=== PATIENT | male | born 1950 | race Caucasian/White ===

== ENCOUNTER 2018-11-14 12:29 | Inpatient (IN) ==
--- NOTE | 2018-11-14 13:25 | Diag Imaging Result Doc PS360 ---
EXAM: CT HEAD W/O CONTRAST 11/14/2018 HISTORY: diplopia TECHNIQUE: This exam was performed using automated exposure control, adjustment of mA or kV according to patient size, and/or use of iterative reconstruction technique. COMMENT: There are small lacunae bilaterally in the basal ganglia. There is some cortical and cortical lucency present posterior to the right sylvian fissure in the parietal lobe which was not present on 02/07/2018. There is no evidence of bleed or abnormal extra-axial fluid collection. There is some mucosal thickening in the ethmoid air cells bilaterally as well as in the left maxillary sinus. This is similar in appearance to the previous study. The calvarium is intact. IMPRESSION: The possibility of a subacute infarction in the right temporoparietal cortex cannot be excluded. Electronically signed by Srini Agrawal 11/14/2018 1:23 PM
--- NOTE | 2018-11-14 13:26 | Diag Imaging Result Doc PS360 ---
EXAM: CHEST-2 VIEWS 11/14/2018 HISTORY: cough TECHNIQUE: PA and lateral chest COMMENT: There are healing rib fractures on the right. There is no evidence of acute cardiac or pulmonary disease and compared to 02/11/2018 there has been no significant change. IMPRESSION: No acute disease. Electronically signed by Srini Agrawal 11/14/2018 1:23 PM
--- NOTE | 2018-11-14 13:48 | EKG Report ---
Test Performed on : 11/14/2018 1:28:10 PM Test Reason : diplopia Blood Pressure : / mmHG Vent. Rate : 092 BPM Atrial Rate : 092 BPM P-R Int : 138 ms QRS Dur : 082 ms QT Int : 354 ms P-R-T Axes : 053 011 052 degrees QTc Int : 437 ms Normal sinus rhythm. Possible Left atrial enlargement Borderline ECG When compared with ECG of 07-FEB-2018 06:42, No significant change was found Unconfirmed Result
[2018-11-14 13:50] LABS: URINE SOURCE CLEAN CATCH
[2018-11-14 13:52] LABS: BILIRUBIN URINE NEGATIVE (NEGATIVE); BLOOD URINE NEGATIVE (NEGATIVE); COLOR YELLOW; GLUCOSE URINE NEGATIVE (NEGATIVE); KETONE URINE NEGATIVE (NEGATIVE); LEUKOCYTES URINE NEGATIVE (NEGATIVE); NITRITE URINE NEGATIVE (NEGATIVE); PH URINE 6.5; PROTEIN URINE NEGATIVE (NEGATIVE); TURBIDITY URINE CLEAR (CLEAR); UR EPITHELIAL CELLS <10 /HPF (<10); URINE BACTERIA NEGATIVE /HPF; URINE RBC <10 /HPF (<10); URINE WBC <10 /HPF (<10); UROBILINOGEN URINE NORMAL (NORMAL)
[2018-11-14 13:59] LABS: INR 1.01; PROTIME 13.4 Seconds (11.0-16.0); PTT 32.9 Seconds (22.3-41.8)
[2018-11-14 14:02] LABS: BASO# 0.06 X1000 (0.0-0.2); BASO% 0.4 % (0.0-0.8); EOS# 0.47 X1000 (0.0-0.7); EOS% 3.1 % (0.0-10.0); HEMATOCRIT 33.5 % (42.0-52.0); HEMOGLOBIN 10.9 g/dL (14.0-18.0); IMM GRAN# 0.47 X1000 (0.0-0.04); IMM GRAN% 3.1 % (0.0-0.5); LYMPH# 1.43 X1000 (1.2-3.4); LYMPH% 9.6 % (20.5-51.1); MCH 29.4 PG (27-31); MCHC 32.5 g/dL (33-37); MCV 90.3 FL (81-99); MONO# 0.89 X1000 (0.11-0.59); MONO% 5.9 % (1.7-9.3); NEUT# 11.64 X1000 (1.4-6.5); NEUT% 77.9 % (42.2-75.2); PLT 492 X1000 (130-400); RBC 3.71 XMIL (4.7-6.1); RDW 23.5 % (11.5-14.5); WBC 14.96 X1000 (4.8-10.8)
[2018-11-14 14:08] LABS: ESTIMATED GFR > 60
[2018-11-14 14:09] LABS: AGAP 14; ALB/GLOB RATIO 1.9; ALBUMIN 4.9 g/dL (3.5-5.0); ALKALINE PHOSPHATASE 100 U/L (32-122); BUN 12 mg/dL (8-22); CALCIUM 8.3 mg/dL (8.8-10.2); CHLORIDE 89 mmol/L (98-107); COSMO 248; CREATININE 0.7 mg/dL (0.7-1.2); GLUCOSE 99 mg/dL (70-104); GOT 16 U/L (10-34); GPT 17 U/L (10-44); MAGNESIUM 1.8 mg/dL (1.5-2.7); POTASSIUM 4.5 mmol/L (3.5-5.1); SODIUM 123 mmol/L (136-145); TCO2 20 mmol/L (25-35); TOTAL BILIRUBIN 0.49 mg/dL (0.20-1.00); TOTAL PROTEIN 7.5 g/dL (6.3-8.3)
[2018-11-14 15:06] LABS: BANDS 2 % (0-1); BASO 2 % (0-1); EOS 4 % (1-10); LYMPHS 9 % (21-51); MONO 5 % (1-9); SEGS 75 % (42-75)
[2018-11-14 15:07] LABS: ANISOCYTOSIS 2+; HYPOCHROM 2+
--- NOTE | 2018-11-14 15:17 | PROVIDER DOCUMENTATION ---
HPI-Neurological Disorder - General Chief Complaint: Stroke-Like Symptoms Stated Complaint: DR CORNEJO REFERRED Time Seen by Provider: 11/14/18 13:02 Source: patient, family Allergies/Adverse Reactions: Patient Allergies Allergy/AdvReac Type Severity Reaction Status Date / Time Penicillins Allergy ANAPHYLAXIS Verified 11/14/18 15:50 Home Medications: Home Medication List Medication Instructions Recorded Confirmed Last Taken Type Levothyroxine [Synthroid] 75 mcg PO QAM 10/04/17 11/14/18 11/14/18 History Losartan [Cozaar] 50 mg PO QAM 10/04/17 11/14/18 11/14/18 History Tamsulosin [Flomax] 0.4 mg PO DAILY 10/04/17 11/14/18 11/13/18 History Testosterone Cypionate 1 dose IM Q14D 10/04/17 11/14/18 11/04/18 History Folic Acid 1 mg PO DAILY #30 tab 02/13/18 11/14/18 11/14/18 Rx Pantoprazole [Protonix] 40 mg PO DAILY@0700 #30 tab 02/13/18 11/14/18 11/14/18 Rx Paroxetine [Paxil] 20 mg PO QHS #30 tab 02/13/18 11/14/18 11/13/18 Rx Amlodipine [Norvasc] 1 tab PO DAILY 11/14/18 11/14/18 11/14/18 History Carvedilol [Coreg] 1 tab PO DAILY 11/14/18 11/14/18 11/13/18 History Hydralazine [Apresoline] 1 tab PO DAILY 11/14/18 11/14/18 11/14/18 History - History of Present Illness-Neuro Nature of Presenting Problem: 68 yr old M, hx of HTN, recent cerebral hemorrhage secondary to trauma, presents with sudden onset diplopia and blurry vision which began this morning. He was initially presenting to the PCP with concerns of pneumonia development due to a 3 day hx of cough and SOB. The pt denies focal weakness, slurring of speech, headache, chest pain, but because of his recent hospitalization, his PCP advised him to come to the ED. They symptoms quickly resolved, and at the time of the initial encounter, the patient was asymptomatic. Onset/Duration: reports: 1/2 hour ago Timing: reports: gone now Context: reports: none Character of Altered Mental Status: reports: N/A Any recent trauma/injury?: reports: major, to head Character of Deficits: reports: vision problem/glaucoma New weakness or altered sensation location:: reports: none Cognitive Baseline: alert, oriented x3 Gait Baseline: walks without assistance Associated Symptoms: reports: denies symptoms Similar Symptoms Previously?: No Review of Systems - Adult - REVIEW OF SYSTEMS - ADULT Constitutional: reports: no symptoms reported Eyes: reports: blurred vision, double vision Ears, Nose, Mouth & Throat: reports: no symptoms reported Cardiovascular: reports: no symptoms reported Respiratory: reports: no symptoms reported Gastrointestinal: reports: no symptoms reported Genitourinary: reports: no symptoms reported Musculoskeletal: reports: no symptoms reported Neurological: denies: ataxia, dizziness/vertigo, headache/migraines, slurred speech, syncope Past History - Adult - PAST MEDICAL HISTORY-ADULT Review of Records: reports: Old Records Reviewed, Nursing Assessment Review Major Childhood Illnesses: reports: denies history Cardiovascular: reports: denies history Respiratory: reports: denies history Gastrointestinal: reports: denies history Obstetrical/Gynecological: reports: denies history Genitourinary: reports: denies history Musculoskeletal: reports: denies history Neurological: reports: denies history Endocrine/Immune: reports: denies history Other Conditions: reports: denies history - PRIOR SURGERIES/PROCEDURES Surgical/Procedure History: reports: other (oral surgery) - IMMUNIZATION STATUS Childhood Immunizations: See Nurse Assessment Flu Vaccine: See Nurse Assessment Physical Exam- Neurological - Physical Exam-Neuro Initial Vital Signs Reviewed: Yes General Appearance: appears well, alert, no apparent distress Eye Exam: bilateral eye: normal inspection, PERRL, EOMI HENMT: normocephalic/atraumatic, moist mucous membranes Head Injury: other (healing scar on right forehead) Respiratory: lungs clear, normal breath sounds Cardiovascular: regular rate, rhythm Abdominal Exam: non tender 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, 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: normal hearing, normal speech Motor/Sensory: no motor deficit, no sensory deficit, no pronator drift Neurologic: grossly normal Psych/Mental Status: normal mood/affect, oriented x 3 - Glascow Coma Scale Best Eye Response: (4) open spontaneously Best Verbal Response: (5) oriented Best Motor Response: (6) obeys commands Progress - PLAN OF CARE/RESULTS Progress/Plan/Lab Results: Vital Signs - 8 hr 11/14/18 12:58 11/14/18 15:37 11/14/18 15:45 Temperature 97.8 F Pulse Rate 90 87 85 Respiratory Rate 20 21 21 Blood Pressure 173/98 O2 Sat by Pulse Oximetry 98 99 98 11/14/18 16:00 11/14/18 16:01 11/14/18 16:15 Temperature Pulse Rate 84 84 83 Respiratory Rate 16 20 16 Blood Pressure 155/90 O2 Sat by Pulse Oximetry 98 99 99 11/14/18 16:30 11/14/18 16:32 11/14/18 16:45 Temperature Pulse Rate 92 H 86 82 Respiratory Rate 15 22 20 Blood Pressure 181/79 O2 Sat by Pulse Oximetry 98 99 98 11/14/18 17:00 11/14/18 17:01 Temperature Pulse Rate 83 82 Respiratory Rate 22 20 Blood Pressure 187/107 O2 Sat by Pulse Oximetry 97 99 Laboratory Results - last 24 hr 11/14/18 11/14/18 11/14/18 13:35 13:35 13:35 WBC 14.96 H RBC 3.71 L Hgb 10.9 L Hct 33.5 L MCV 90.3 MCH 29.4 MCHC 32.5 L RDW Std Deviation 23.5 H Plt Count 492 H MPV 9.0 Immature Gran % (Auto) 3.1 H Neut % (Auto) 77.9 H Lymph % (Auto) 9.6 L [place] % (Auto) 5.9 Eos % (Auto) 3.1 Baso % (Auto) 0.4 Immature Gran # (Auto) 0.47 H Neut # (Auto) 11.64 H Lymph # (Auto) 1.43 [place] # (Auto) 0.89 H Eos # (Auto) 0.47 Baso # (Auto) 0.06 Segmented Neutrophils 75 Band Neutrophils 2 H Lymphocytes 9 L Monocytes 5 Eosinophils 4 Basophils 2 H Metamyelocytes 2.0 Myelocytes 1.0 Hypochromia 2+ Anisocytosis 2+ PT 13.4 INR 1.01 PTT (Actin FS) 32.9 Sodium 123 L Potassium 4.5 Chloride 89 L Carbon Dioxide 20 L Anion Gap 14 BUN 12 Creatinine 0.7 Estimated GFR/1.73 m2 > 60 BUN/Creatinine Ratio 17 Glucose 99 Calculated Osmolality 248 Calcium 8.3 L Magnesium 1.8 Total Bilirubin 0.49 AST 16 ALT 17 Alkaline Phosphatase 100 Troponin T Total Protein 7.5 Albumin 4.9 Globulin 2.6 Albumin/Globulin Ratio 1.9 Urine Source Urine Color Urine Turbidity Urine pH Ur Specific [place] Urine Protein Ur Glucose (Stick) Ur Ketones (Stick) Urine Blood Urine Nitrite Urine Bilirubin Urobilinogen Dipstick Urine Leukocytes Urine WBC (Auto) Urine RBC (Auto) U Epithel Cells (Auto) Urine Bacteria (Auto) 11/14/18 11/14/18 13:35 13:41 WBC RBC Hgb Hct MCV MCH MCHC RDW Std Deviation Plt Count MPV Immature Gran % (Auto) Neut % (Auto) Lymph % (Auto) [place] % (Auto) Eos % (Auto) Baso % (Auto) Immature Gran # (Auto) Neut # (Auto) Lymph # (Auto) [place] # (Auto) Eos # (Auto) Baso # (Auto) Segmented Neutrophils Band Neutrophils Lymphocytes Monocytes Eosinophils Basophils Metamyelocytes Myelocytes Hypochromia Anisocytosis PT INR PTT (Actin FS) Sodium Potassium Chloride Carbon Dioxide Anion Gap BUN Creatinine Estimated GFR/1.73 m2 BUN/Creatinine Ratio Glucose Calculated Osmolality Calcium Magnesium Total Bilirubin AST ALT Alkaline Phosphatase Troponin T < 0.010 Total Protein Albumin Globulin Albumin/Globulin Ratio Urine Source CLEAN CATCH Urine Color YELLOW Urine Turbidity CLEAR Urine pH 6.5 Ur Specific [place] 1.016 Urine Protein NEGATIVE Ur Glucose (Stick) NEGATIVE Ur Ketones (Stick) NEGATIVE Urine Blood NEGATIVE Urine Nitrite NEGATIVE Urine Bilirubin NEGATIVE Urobilinogen Dipstick NORMAL Urine Leukocytes NEGATIVE Urine WBC (Auto) <10 Urine RBC (Auto) <10 U Epithel Cells (Auto) <10 Urine Bacteria (Auto) NEGATIVE Orders Category Date Time Status Cardiac Monitoring DIRECTED Care 11/14/18 13:04 Active Saline Loc NOW Care 11/14/18 13:04 Active CHEST-2 VIEWS [RAD] Stat Exams 11/14/18 13:[address] HEAD W/O CONTRAST [CT] Stat Exams 11/14/18 13:03 Completed MRI BRAIN W/CONTRAST [MRI] Stat Exams 11/14/18 16:10 Completed BLOOD CULTURE [BLDCUL] Stat Lab 11/14/18 17:32 Received CBC WITH DIFF [HEME] Stat Lab 11/14/18 13:35 Completed COMPREHENSIVE METABOLIC PANEL [CHEM] Stat Lab 11/14/18 13:35 Completed MAGNESIUM [CHEM] Stat Lab 11/14/18 13:35 Completed PROTIME WITH INR [COAG] Stat Lab 11/14/18 13:35 Completed PTT [COAG] Stat Lab 11/14/18 13:35 Completed TROPONIN T Stat Lab 11/14/18 13:35 Completed UA NIMS W/REFLEX CULT [URINALYSIS] Stat Lab 11/14/18 13:41 Completed 0.9% Sodium Chloride Inj [Ns] 1,000 ml Med 11/14/18 16:34 Discontinued IV 999 mls/hr Albuterol 2.5MG/Ipratrop 0.5MG [Duoneb (A & A)] Med 11/14/18 16:47 Discontinued 3 ml INH NOW ONE Aerosol Treatments Routine Oth 11/14/18 16:47 Active Aerosol Treatments Stat Oth 11/14/18 16:47 Active EKG [EKG] Stat Ther 11/14/18 13:04 Draft Result Diagrams: 11/14/18 13:35 11/14/18 13:35 - EKG 1 Time of EKG reading by physician:: 13:40 EKG Read and Signed by:: Reji Mohamud EKG Interpretation (*Must complete 3 of following elements*): Normal Rate: 92 Rhythm: sinus, w/ possible left atrial enlargment Mason: normal QRS: normal NM Interval: normal ST Wave: normal - XRAY 1 XRAY Study: Chest (no acute) Impression: See EMR Report (no acute findings) - CT/MRI 1 CT Study: Head Impression: See EMR Report (subacute right temporoparietal infarct cannot be excluded, per radiology report.) - CONSULTS/PCP/HOSPITALIST Notification #1 *Consult/PCP/Hospitalist*: Dr. Henriquez (sp?) Transfer Center Time Discussed: 16:10 Reason/Comments: hold transfer at this time, admit here unless MRI shows acute abnormalities #2 Consult: Dr. Latham Time Discussed: 19:35 Consult Disposition: Admit Departure - Departure Date of Disposition Decision: 11/14/18 Time of Disposition Decision: 19:43 DIAGNOSIS: Hyponatremia, Leukocytosis Disposition: ADMITTED INPATIENT 09 Certified Medical Emergency: Emergent Condition: Fair Referrals and Follow-Ups: Osvaldo Cornejo [Primary Care Provider] - - Critical Care Note This patient required my direct & personal management of CC.: No Attestation - Physician/ RADHA Attestation Patient care was provided by Advanced Practice Provider:: No The physician spent face to face time with patient:: Yes Advanced Practice Provider documentation review:: Supervising physician onsite and consulted in the evaluation and care of this patient. The physician did have a face to face encounter with the patient. - NIH Stroke Scale NIH Type: Initial Evaluation Level of Consciousness: 0-Alert LOC Questions (ask month and age): 0-Answers Both Correctly LOC Commands (ask to open & close eyes;make a fist, let go): 0-Obeys Both Correctly Best Gaze (horizontal eye movement): 0-Normal Visual (use finger movement, counting or visual threat): 0-No Visual Loss Facial Palsy (show teeth or raise eyebrows & close eyes tght: 1-Minor Paralysis Motor Function-left arm: 0-Normal Motor Function-right arm: 0-Normal Motor Function-left le-Normal Motor Function-right le-Normal Limb Ataxia(jvtbmz-legi-oamzlb, or heel to lopez): 0-No Ataxia Sensory(pin prick to face,arms,trunk,legs-compare side/side): 0-No Ataxia Best Language(name item/read sentence.Ex-Down to Earth): 0-No Aphasia Dysarthria(Pt read words or say words Ex.Mama,Tip-Top,Thanks: 0-Normal Articulation Extinction and Inattention: 0-Normal NIH Total Score: 1
[2018-11-14] MEDS ORDERED: NS 1,000 ML IV ONE (16:34)
[2018-11-14] MEDS ORDERED: DUONEB (A & A) INH ONE (16:47)
--- NOTE | 2018-11-14 18:16 | Diag Imaging Result Doc PS360 ---
EXAM: MRI BRAIN W/CONTRAST - 11/14/2018 HISTORY: Concern for CVA TECHNIQUE: MRI brain without and with contrast. Images are obtained prior to and following gadolinium administration. COMPARISON: 02/07/2018 MRI brain without contrast, 11/14/2018 CT head without contrast FINDINGS: There is a 2.4 x 1 cm area of restricted diffusion at the posterior temporal parietal junction on the right. There is corresponding increased signal at this location on T1-weighted, FLAIR, and T2-weighted images. The increased signal on the T1-weighted images suggests luxury perfusion. There is a small amount of enhancement at the lateral margin of the infarct. These findings suggest late acute to subacute infarct. The diffusion weighted images show no other areas of restricted diffusion. There is no other evidence of intracranial hemorrhage, mass effect, midline shift or abnormal enhancement. IMPRESSION: 2.4 x 1 cm late acute to subacute infarct at posterior right temporal parietal junction. Electronically signed by Dawson Miramontes 11/14/2018 6:14 PM
[2018-11-14 21:38] LABS: SP GRAVITY URINE 1.017
--- NOTE | 2018-11-14 21:43 | HISTORY AND PHYSICAL ---
REASON FOR ADMISSION: Two day history of congestion and 1-day history of diplopia. DIPLOPIA TODAY THE: Mr. Corby White is a 60-year-old male with a past medical history of posttraumatic intracranial bleed less than a month ago. He also has a history of COPD, hypertension and BPH. Today, he came in because he had been having some increasing shortness of breath, nonproductive cough, chest congestion with wheezing for the last 2 days. He admits to having subjective fever and chills. He went to see Dr. Saibllon today but his daughter noticed that he was ataxic as far as his gait was concerned and the patient admitted to having blurred vision, but no new onset headache. No speech disturbance of facial asymmetry noted. On arriving there, these symptoms still persisted and he was referred to the ER for further workup. Patient denies any new focal weakness. No genitourinary complaints. No GI complaints. No polyuria polydipsia. No recent change in his medications. Since he left [facility] a month ago for an intracranial bleed, his aspirin has been withheld. No loss of consciousness. REVIEW OF SYSTEMS: Twelve system review was done. Positive findings per HPI. ALLERGIES TO: Penicillins and albuterol. HOME MEDICATIONS: Patient takes hydralazine 50 mg daily, Coreg 12.5 mg daily, losartan 50 mg daily, Flomax 0.4 mg daily, Norvasc 10 mg daily, Synthroid 25 mcg daily, testosterone shots every 2 weeks, Paxil 20 mg at bedtime, folic acid 1 mg daily, Protonix 40 mg daily. SURGICAL HISTORY: Tonsillectomy and appendectomy. SOCIAL HISTORY: He is . Lives in [place]. Drinks about 1 to 2 glasses of wine a day. Does not smoke. FAMILY HISTORY: Father has coronary artery disease. Mother had leukemia. Positive history of diabetes in first-degree relatives. LAB WORK: MRI of the brain showed 2.4 x 1 cm late acute to subacute infarct of the right posterior temporal parietal junction. CT of the head done showed possible subacute infarct of the right temporoparietal cortex. Chest film showed no acute disease. EKG showed sinus rhythm, possible left atrial enlargement. WBC 15,000, H H 10 and 30, platelets 492,000, 78% neutrophils. Sodium is 123. BUN is 17, creatinine 0.7. Calcium 8.3. Troponin is negative. PTT is normal. Urinalysis is clean. EXAMINATION: General: Middle-aged man who is not in acute distress. He is A and O x3. Normal mood and affect. The patient is anicteric, not pale. HEENT: Head is normocephalic, but the patient has an almost healed scar on the left temporal area of his head. Eyes, DOMINIC, EOMI. Neurological: Cranial nerves 2-12 are grossly intact. The rest of neurological exam no gross focal deficits. No tremors. DTRs are intact. Neck: Supple. No JVD or carotid bruit. No thyromegaly. Chest: Bibasilar crepitations and wheezes scattered all over both lung kyle. Decreased air entry in both lung kyle. Cardiovascular: First and sounds heard. No gallops, murmurs, rubs. Rhythm is regular. Abdomen: Full, soft, nontender. No mass or organomegaly. Bowel sounds are normal. Rectal: Deferred at this time. Extremities: Patient has good distal pulse volume in all extremities except the patient's left posterior tibialis and left dorsalis pedis pulses are difficult to palpate. Rhythm is regular with occasional skipped beats and pulses are symmetrical. No edema, clubbing or peripheral cyanosis. Neurological: See above. Skin: Intact. No breakdown, lesions, erythema. Musculoskeletal: Exam is grossly normal. ASSESSMENT: 1. Probable transient ischemic attack. The patient does not have any acute signs or symptoms at this point in time. No diplopia. Family states to have some residual ataxia. We will consult Dr. Long to see patient. I have ordered an echocardiogram and may consider carotid study if deemed necessary. Although I do still records from [place] will need to be retrieved as this patient may have had a possible MRAs of the head and neck due to his recent acute intracranial incident. Question of starting aspirin is highly controversial. I will defer to Dr. Long because of patient's recent cranial bleed. However I will start patient on statins. Cautiously use antihypertensives. 2. Hyponatremia. This could be as a consequence of possible intrathoracic and/or recent intracranial injury which can affect the ADH secretion. We will get a urine osmolality and uric acid and spot sodium to confirm or refute this. Also get a TSH. Cautious sodium chloride replacement and monitor BMP closely. 3. Microcytic anemia. This could be related to hypothyroidism or some yet to be diagnosed hematinic deficiency. Anemia workup was ordered. 4. Hypertension. 5. Chronic obstructive pulmonary disease with mild exacerbation. However, cannot rule out underlying pneumonia. We will order scheduled nebulizer treatments and empiric antibiotics and noncontrast CT thorax because of patient's complaints of fever, pneumonia, and worsening shortness of breath which may suggest an ongoing pneumonia. cc: Guille Latham MD
[2018-11-14] MEDS ORDERED: COREG PO SCH (22:03)
[2018-11-14] MEDS ORDERED: ZOFRAN IV PRN (22:03)
[2018-11-14] MEDS ORDERED: NS NEB INH SCH (22:03)
[2018-11-14] MEDS ORDERED: TYLENOL PO PRN (22:03)
[2018-11-14] MEDS ORDERED: NS 1,000 ML IV SCH (22:03)
[2018-11-14] MEDS ORDERED: ATIVAN IV PRN (22:37)
[2018-11-14] MEDS: ATROVENT NEB INH SCH (22:45)
[2018-11-14] MEDS: LIPITOR PO SCH (23:32)
[2018-11-14] MEDS: PAXIL PO SCH (23:32)
[2018-11-14] MEDS: THIAMINE 100 MG in NS 50 ML IV SCH (23:33)
[2018-11-14] MEDS: NORCO-5 PO PRN (23:33)
[2018-11-14] MEDS: XOPENEX NEB INH SCH (23:40)
[2018-11-15] MEDS: LEVAQUIN 500 MG/D5W 500 MG/100 ML IVPB IV SCH (00:15)
[2018-11-15] MEDS: APRESOLINE PO SCH ×3 (00:15→20:04)
[2018-11-15 01:36] LABS: AGAP 13; BUN 10 mg/dL (8-22); CHLORIDE 96 mmol/L (98-107); COSMO 260; CREATININE 0.7 mg/dL (0.7-1.2); ESTIMATED GFR > 60; GLUCOSE 109 mg/dL (70-104); POTASSIUM 4.2 mmol/L (3.5-5.1); SODIUM 130 mmol/L (136-145); TCO2 21 mmol/L (25-35)
[2018-11-15] MEDS: PROTONIX PO SCH ×2 (06:04→07:23)
[2018-11-15] MEDS: SYNTHROID PO SCH ×2 (06:05→07:23)
[2018-11-15 06:23] LABS: AGAP 14; BUN 11 mg/dL (8-22); CALCIUM 8.2 mg/dL (8.8-10.2); CHLORIDE 97 mmol/L (98-107); COSMO 260; CREATININE 0.7 mg/dL (0.7-1.2); ESTIMATED GFR > 60; GLUCOSE 90 mg/dL (70-104); MAGNESIUM 2.1 mg/dL (1.5-2.7); POTASSIUM 4.2 mmol/L (3.5-5.1); SODIUM 130 mmol/L (136-145); TCO2 19 mmol/L (25-35)
[2018-11-15 06:47] LABS: BASO% 0.8 % (0.0-0.8); HEMATOCRIT 32.1 % (42.0-52.0); HEMOGLOBIN 10.1 g/dL (14.0-18.0); LYMPH# 1.38 X1000 (1.2-3.4); LYMPH% 11.1 % (20.5-51.1); MCH 29.1 PG (27-31); MCHC 31.5 g/dL (33-37); MCV 92.5 FL (81-99); MONO# 0.89 X1000 (0.11-0.59); MONO% 7.2 % (1.7-9.3); MPV 9.1 FL (7.4-10.4); PLT 464 X1000 (130-400); RBC 3.47 XMIL (4.7-6.1); RDW 23.5 % (11.5-14.5); WBC 12.42 X1000 (4.8-10.8)
--- NOTE | 2018-11-15 07:25 | Diag Imaging Result Doc PS360 ---
EXAM: CT THORAX W/O CONTRAST 11/14/2018 HISTORY: Possible PNA TECHNIQUE: This exam was performed using automated exposure control, adjustment of mA or kV according to patient size, and/or use of iterative reconstruction technique. COMMENT: The blood pool in the aorta has a CT density of less than 35 Hounsfield units which is likely associated with anemia. There is no evidence of aneurysm. There is a small hiatal hernia. There is a fairly large amount of stool seen in the transverse colon. There is some perinephric stranding on the left. This is similar in appearance to the previous study of 02/08/2018. Multiple hepatic cysts are present. This was also the case previously. The gallbladder is slightly hyperdense. While the possibility of sludge cannot be entirely excluded, it is likely this is due to vicarious excretion of gadolinium from the MRI of the brain performed earlier today. There is an adenoma in the left adrenal gland measuring 19 mm in diameter which is also stable in appearance since the previous study. There are no pleural effusions. There is some calcification in the left anterior descending coronary artery. There is no evidence of significant adenopathy. There is no evidence of acute bony abnormality. The lungs are unchanged in appearance since the previous study and there is no evidence of acute pulmonary disease. There is a granuloma in the left apex. IMPRESSION: No evidence of acute pulmonary disease. Anemia. Otherwise stable since 02/08/2018. Electronically signed by Srini Agrawal 11/15/2018 7:23 AM
[2018-11-15 07:55] LABS: BANDS 3 % (0-1); BASO 1 % (0-1); EOS 7 % (1-10); LYMPHS 14 % (21-51); MONO 7 % (1-9); NRBC 1 % (0-0); SEGS 67 % (42-75)
[2018-11-15 08:18] LABS: UR AMPHETAMINES QUAL NONE DETECTED (NONE DETECT); UR BARBITUATES QUAL NONE DETECTED (NONE DETECT); UR BENZODIAZEPIN QUAL NONE DETECTED (NONE DETECT); UR CANNABINOIDS QUAL NONE DETECTED (NONE DETECT); UR COCAINE QUAL NONE DETECTED (NONE DETECT); UR METHADONE QUAL NONE DETECTED (NONE DETECT); UR OPIATES QUAL NONE DETECTED (NONE DETECT); UR OXYCODONE QUAL NONE DETECTED (NONE DETECT); UR PCP QUAL NONE DETECTED (NONE DETECT)
[2018-11-15] MEDS ORDERED: COZAAR PO SCH (09:00)
[2018-11-15] MEDS: NORVASC PO SCH (10:03)
[2018-11-15] MEDS: FOLIC ACID PO SCH (10:03)
[2018-11-15] MEDS: FLOMAX PO SCH (10:03)
[2018-11-15] MEDS: ATROVENT NEB INH SCH ×2 (11:24→16:10)
[2018-11-15] MEDS: XOPENEX NEB INH SCH ×2 (11:24→16:10)
[2018-11-15] MEDS ORDERED: NS 1,000 ML IV SCH (15:00)
--- NOTE | 2018-11-15 16:35 | ECHO REPORT ---
ORDER DATE: 11/14/2018 INTERPRETING PHYSICIAN: Jonas Noriega MD. CLINICAL INDICATIONS: TIA. M-MODE MEASUREMENTS: Left ventricle end diastole: 5.5 cm. Left ventricle end systole: 2.9 cm. Posterior wall: 0.7 cm. Interventricular septum: 0.9 cm. Left atrium: 4.0 cm. Aortic diameter: 3.6 cm. SUMMARY OF 2-DIMENSIONAL IMAGIN. The left ventricular function is normal. Ejection fraction is 64%. The left ventricular chamber is mildly enlarged. 2. The aortic valve looks grossly unremarkable. Color flow mapping shows no regurgitation. 3. The pulmonic valve also looks grossly unremarkable. 4. The mitral valve looks normal with no significant regurgitation. 5. Pulsed wave Doppler of mitral inflow shows mild reversal of the E and the A ratio. Ratio is almost basically normal at 0.88. 6. The pulsed wave Doppler of pulmonary venous flow is normal. 7. The tissue Doppler of septal and lateral mitral annulus averages 10 cm. 8. There is no diastolic dysfunction. 9. The left atrium is mildly enlarged. 10.There is no pericardial effusion. 11.The right-sided chambers are unremarkable. IN SUMMARY: This study shows 1. Normal left ventricular systolic function. 2. Normal diastolic function. 3. No evidence of any significant valvular abnormality. 4. No pericardial effusion. 5. Pulmonary pressure is grossly estimated at 37 mmHg. cc: MD Guille Dai MD
--- NOTE | 2018-11-15 19:25 | PROGRESS NOTE ---
DATE: 11/15/2018 SUBJECTIVE: The patient is awake and alert. He states that he feels a lot better. He has already been up walking with physical therapy in the hallway. His mental status has returned to baseline as per his daughter at the bedside. OBJECTIVE: Vital Signs: Temperature 98.4 degrees, blood pressure 143/71, heart rate 93, respirations 20, O2 saturation 99% on room air. General: This is an elderly male, sitting up in bed in no acute distress. Heart: S1, S2, normal. Lungs: Coarse breath sounds bilaterally. Abdomen: Positive bowel sounds. Soft, nontender, nondistended. Extremities: No edema. No cyanosis. Neurologic: The patient is alert and oriented x3. LABS: White blood cell count 12, hemoglobin 10, hematocrit 32, platelets 464,000. Sodium 129, potassium 4.2, chloride 97, CO2 19, BUN 11, creatinine 0.7, glucose 90, calcium 8.2, TSH 0.8. ASSESSMENT AND PLAN: 1. Suspected subacute cerebrovascular accident. The patient appears to be back to baseline. We will continue with physical therapy and occupational therapy. The carotid duplex study has been done. The report is currently pending. The patient's echocardiogram was noted to be unremarkable. Given the patient's recent intracranial hemorrhage at [facility], we will hold off on antiplatelet therapy. 2. Chronic obstructive pulmonary disease. Continue with bronchodilator therapy. 3. Hypertension, improved. Continue with the current antihypertensive regimen. 4. Leukocytosis, improved. 5. Hypothyroidism. Continue on Synthroid. 6. Hyponatremia. Will monitor the sodium closely. Continue with intravenous fluids. 7. Deep vein thrombosis prophylaxis. Continue with sequential compression devices. 8. Will transfer the patient to the medical floor. cc: Lindy Marcus MD
[2018-11-15] MEDS: LIPITOR PO SCH (20:03)
[2018-11-15] MEDS: COREG PO SCH (20:03)
[2018-11-15] MEDS: NORCO-5 PO PRN (20:04)
[2018-11-15] MEDS: PAXIL PO SCH (20:07)
[2018-11-15] MEDS: THIAMINE 100 MG in NS 50 ML IV SCH (22:54)
[2018-11-16] MEDS: LEVAQUIN 500 MG/D5W 500 MG/100 ML IVPB IV SCH ×2 (00:02→22:59)
[2018-11-16] MEDS: ATROVENT NEB INH SCH ×4 (04:59→23:19)
[2018-11-16] MEDS: XOPENEX NEB INH SCH ×4 (04:59→23:19)
--- NOTE | 2018-11-16 05:36 | CONSULTATION ---
DATE OF CONSULTATION: 11/15/2018 REASON FOR CONSULTATION: Stroke. HISTORY OF PRESENT ILLNESS: This is a 68-year-old male with history of hypertension and recent traumatic intracranial hemorrhage about one month ago. He came in yesterday with complaints of transient horizontal diplopia and unsteady gait. Symptoms came on suddenly, and seemed to last for several hours before completely resolving. He denies other associated symptoms. No headache. No loss of consciousness. No difficulty swallowing or maintaining secretions. No dysarthria. He had initially presented to his primary care physician for 3 days worth of shortness of breath, cough, congestion, and wheezing. He also denied any focal weakness or sensory loss. Head CT on arrival showed the possibility of subacute infarction in the right temporal parietal cortex that could not be excluded. MRI of the brain today showed late acute to subacute infarct of the posterior right temporal parietal junction. Again, the patient is currently asymptomatic. notes he has had some confusion for some time now. He has had some unsteady gait and dizziness off and on for some time as well. He has had falls. He used to drink a bottle of wine a day. His sodium was 123 on arrival. Of note, the patient had a fall about 1 month ago down a handful of brick stairs in his garage. He was found semiconscious in a pool of blood with extensive bruising to the face. He was med flighted to [facility] where he stayed for treatment there. The indicates that he had two small hemorrhages in his brain as well as edema. He was monitored but ultimately no neurosurgical intervention occurred. He was taking low-dose aspirin which was given to him by his primary care physician. That was discontinued a month ago when he had the intracranial hemorrhage. PAST MEDICAL HISTORY: 1. Recent presumed traumatic intracranial hemorrhage. I do not have much more specifics currently. This was 1 month ago. 2. Hypertension. 3. COPD. 4. BPH. 5. Hypothyroidism. 6. Depression. FAMILY HISTORY: Positive for diabetes, coronary disease, and leukemia. SOCIAL HISTORY: He is . He lives in [place]. I believe his daughter works here in the hospital. He endorses drinking a bottle of wine a day. No tobacco or illicit's. He is retired. ALLERGIES: Listed to penicillin and albuterol. HOME MEDICATIONS: Reviewed in the chart. He takes testosterone, Paxil, folic acid, hydralazine, Coreg, losartan, Flomax, Norvasc, and Synthroid. REVIEW OF SYSTEMS: Balance of 12 was conducted, and is otherwise negative except for that detailed in the HPI. DIAGNOSTICS/LABORATORY DATA: Labs reviewed in the chart, white count 12 and platelets 464,000. Sodium 123 on admission and currently 134, BUN and creatinine normal. Blood sugars normal. Calcium 8.3. Magnesium normal. TSH 8.09. Urinalysis negative. Toxicology negative. Head CT personally reviewed. The impression is a possibility of a subacute infarction of the right temporal parietal cortex could not be excluded. MRI of the brain with contrast personally reviewed. Impression is that there is a 2.4 x 1 cm late acute to subacute infarct at the posterior right temporal parietal junction. There is restricted diffusion in this area. There is also prominent [*]signal in the T2 images. There is a very small area of enhancement at the lateral edge of the restricted diffusion. PHYSICAL EXAMINATION: Vital Signs: Afebrile. Blood pressure 173/98 on admission. Currently 153/75, pulse 70s to 90s, respirations 16 at 100 percent on room air. General: He is a 60-year- old left-handed male with no significant dysarthria. Mr. White is supine in bed with head of bed elevated. He is awake and alert, and oriented. Follows simple and complex commands. Left right digit distinction preserved. No definite language dysfunction. He is cooperative, may be a bit anxious. He speaks quickly. Pupils are equal, round, and reactive to light. Gaze is conjugate. Extraocular movements are full. I did not observe nystagmus. Visual kyle are intact to direct confrontational testing. He could hear. Face symmetric with equal activation. Facial sensation reported intact. Tongue is midline. I could not visualize the palate. Shoulder shrug is full. No drift. Tone is equal of the limbs. The power is preserved in the arms and legs as tested. He reports intact sensation to light touch and temperature as well as pinprick in the arms and legs that is symmetric. Rapid alternating movements. [id number] and finger taps are intact. Reflexes: He has a difficult time relaxing. They are 2+ at the knees, and wrists bilaterally. No clonus. Plantar response is downgoing laterally. I did not test his gait. ASSESSMENT AND PLAN: 1. Transient reported horizontal diplopia, visual blurring, and unsteady gait lasting several hours. History of off and on difficulties with unsteady gait and falls. Multiple potential etiologies or contributing factors including alcohol intake, possible Wernicke's type symptoms, chronic hyponatremia, potential for TIA at least regarding this most recent event. 2. Area of restricted diffusion on MRI imaging with corresponding finding on head CT. Appears to be stroke on initial glance, however, it is questionable and I am not certain of that in light of his very recent head trauma as well as lack of explanation of his clinical presenting symptoms. I have asked the nurse to request records from [facility]. It would be helpful to know where his recent hemorrhages were and the details surrounding that injury. 3. Hypertension. 4. Hyponatremia, being corrected by the primary team. Could be related to his reports of confusion and unsteadiness etc. 5. Again, I would like to start by getting records from his recent hospitalization at [facility]. It may be worthwhile to obtain vascular imaging of the intracranial vessels, particularly the posterior circulation. I would hold off on initiating aspirin until we are more certain that he has actually had an ischemic event in light of his recent head trauma. Continue treating his hyponatremia per primary team. I believe the typical stroke workup is pending. Agree with thiamine supplementation, and he likely should continue this as outpatient. He was counseled on his alcohol intake. PT/OT. 6. Thank you for the consultation. cc: Ashlee Lieberman MD
[2018-11-16] MEDS: SYNTHROID PO SCH (06:15)
[2018-11-16] MEDS: PROTONIX PO SCH (06:15)
[2018-11-16 07:47] LABS: BASO# 0.09 X1000 (0.0-0.2); BASO% 0.8 % (0.0-0.8); EOS# 0.64 X1000 (0.0-0.7); EOS% 5.9 % (0.0-10.0); HEMATOCRIT 31.3 % (42.0-52.0); HEMOGLOBIN 9.9 g/dL (14.0-18.0); IMM GRAN# 0.21 X1000 (0.0-0.04); IMM GRAN% 1.9 % (0.0-0.5); LYMPH# 1.18 X1000 (1.2-3.4); LYMPH% 10.8 % (20.5-51.1); MCH 29.1 PG (27-31); MCHC 31.6 g/dL (33-37); MCV 92.1 FL (81-99); MONO# 0.75 X1000 (0.11-0.59); MONO% 6.9 % (1.7-9.3); MPV 9.4 FL (7.4-10.4); NEUT# 8.05 X1000 (1.4-6.5); NEUT% 73.7 % (42.2-75.2); PLT 437 X1000 (130-400); RDW 23.5 % (11.5-14.5); WBC 10.92 X1000 (4.8-10.8)
[2018-11-16 08:00] LABS: AGAP 11; ALB/GLOB RATIO 1.5; ALKALINE PHOSPHATASE 87 U/L (32-122); BUN 11 mg/dL (8-22); CALCIUM 8.4 mg/dL (8.8-10.2); CHLORIDE 99 mmol/L (98-107); COSMO 266; CREATININE 0.6 mg/dL (0.7-1.2); ESTIMATED GFR > 60; GLUCOSE 108 mg/dL (70-104); GOT 13 U/L (10-34); GPT 12 U/L (10-44); SODIUM 133 mmol/L (136-145); TCO2 23 mmol/L (25-35); TOTAL BILIRUBIN 0.37 mg/dL (0.20-1.00); TOTAL PROTEIN 6.7 g/dL (6.3-8.3)
[2018-11-16 08:03] LABS: IRON SATURATION 5 %; TIBC 438 ug/dL; TOTAL IRON 21 ug/dL (53-167); UNBOUND IRON 417 ug/dL (112-346)
[2018-11-16 08:15] LABS: FERRITIN 14 ng/mL (30-400)
[2018-11-16 08:33] LABS: BANDS 4 % (0-1); EOS 4 % (1-10); LYMPHS 10 % (21-51); MONO 4 % (1-9); SEGS 72 % (42-75)
[2018-11-16 08:34] LABS: ANISOCYTOSIS 2+; HYPOCHROM 2+; POIKILOCYTOSIS 1+
[2018-11-16] MEDS: FOLIC ACID PO SCH (09:25)
[2018-11-16] MEDS: NORCO-5 PO PRN ×3 (09:25→20:21)
[2018-11-16] MEDS: ICAR-C PO SCH ×2 (09:25→20:21)
[2018-11-16] MEDS: APRESOLINE PO SCH ×2 (09:25→20:21)
[2018-11-16] MEDS: FLOMAX PO SCH (09:26)
[2018-11-16] MEDS: NORVASC PO SCH (09:26)
[2018-11-16] MEDS: COREG PO SCH ×2 (09:26→20:21)
--- NOTE | 2018-11-16 12:52 | PROGRESS NOTE ---
DATE: 11/16/2018 Mr. White reports transient diplopia 2 days ago. He noticed consistently horizontal diplopia while watching television. That persisted for several hours and then resolved spontaneously. He covered each eye and noticed vision was single with either eye covered and there was better acuity with the left eye than the right. He did not notice gaze in one direction to improve vision. There was no associated new neurologic deficit, altered consciousness, swallowing difficulty. He has a very complicated past neurologic history. There is history of chronic ethanol abuse, episodes of staggering and falling, prior head injuries. He had serious head injury about a month ago and there is report of intracranial bleeding managed conservatively without surgery in [place]. Daughter at the bedside believes this was right-sided bleeding. She does not know whether this was subdural hematoma, intraparenchymal bleeding, subarachnoid bleeding, brain contusion. He had what sounds like decerebrate posturing initially and was reported unconscious for a period of days. As he recovered, there was never a focal neurologic feature and there was never diplopia, according to patient and daughter. Records regarding that management in [place] have been requested but I do not see those available here now. There is report that he has had "lazy eye" but no prior diplopia except very briefly after cataract surgery some years ago. Workup here includes a brain MRI showing no definite brainstem findings. There is area of reduced brain density in the right hemisphere posteriorly. There is some increased signal on diffusion weighted images. He presented with hyponatremia which has been slowly and partially corrected. On exam, Mr. White is awake, alert, attentive, oriented. He seems appropriate. He did well on [id number] testing. Speech is not dysarthric. Facial motility is symmetric. He has full visual kyle tested grossly. His extraocular movements are initially full but with repeated left and right gaze, sometimes the right eye lags when moving nasally. He did not report diplopia at those times. There was not clear fatiguing of eye movements on repeated testing. I did not test his gait. IMPRESSION: Reported diplopia lasting most of the day and resolving spontaneously. He is certain this was consistently horizontal. His history is consistent and believable. Explanation for his diplopia is not certain. He might have had transient brainstem ischemia, transient cranial nerve ischemia, transient unmasking of chronic amblyopia, Wernicke encephalopathy, primary neuromuscular problem. None of these seem particularly likely. He could have a posttraumatic cranial nerve injury but this would be more likely to cause vertical diplopia and he did not notice diplopia as he recovered from his recent head injury. Sodium has been corrected cautiously and there is no imaging evidence of pontine myelinolysis. I agree with continuing thiamine. I encouraged him to be aggressive with management of his risk factors for cerebrovascular ischemic problems. I encouraged him to moderate use or to stop using ethanol. I do not have any other suggestion right now. Nothing to add to Dr. Lieberman's recent thorough assessment. Thanks for asking Neurology to see Mr. White. cc: Geovani Long III, MD MTDD
[2018-11-16] MEDS: ANUSOL-HC SUPP PR SCH ×2 (15:50→22:23)
[2018-11-16] MEDS: LIPITOR PO SCH (20:21)
--- NOTE | 2018-11-16 21:51 | PROGRESS NOTE ---
DATE: 11/16/2018 SUBJECTIVE: The patient is alert and awake. He states that he feels great today. He ate all of his meals and he has been able to ambulate with physical therapy today. OBJECTIVE: Vital Signs: Temperature 98.7 degrees, blood pressure 132/76, heart rate 77, respirations 18, O2 saturations 100% on room air. General: This is an elderly male sitting up in bed in no acute distress. Head: Normocephalic, atraumatic. Heart: S1, S2 normal. Regular rate and rhythm. Lungs: Clear to auscultation bilaterally. Abdomen: Positive bowel sounds. Soft, nontender, nondistended. Extremities: No edema. No cyanosis. Neurologic: The patient is alert and oriented x4. No focal neurologic deficits noted. LABS: White blood cell count 10, hemoglobin 9.9, hematocrit 31, platelets 437,000. Sodium 132, potassium 4, chloride 99, CO2 23, BUN 11, creatinine 0.6, glucose 108, calcium 8.4, folate 15. ASSESSMENT AND PLAN: 1. Transient ischemic attack vs subacute CVA. Stable. Continue with physical therapy. 2. Hyponatremia. The patient's sodium improved while on normal saline. However, once the normal saline was discontinued, the sodium has started to drop. We will consult with Nephrology for further recommendations. 3. Hypertension. Controlled. Continue on the current antihypertensive regimen. 4. Chronic obstructive pulmonary disease. Stable. Continue on bronchodilator therapy. 5. Hypothyroidism. Continue on Synthroid. 6. Status post traumatic intracranial hemorrhage. Stable. 7. Iron deficiency anemia. Will start Icar C. GI follow up as outpatient. 8. Deep vein thrombosis prophylaxis. Continue with sequential compression devices. 9. Disposition. Will plan to discharge the patient home once his sodium level stabilizes. cc: Lindy Marcus MD [facility]
[2018-11-16] MEDS: THIAMINE 100 MG in NS 50 ML IV SCH (22:59)
[2018-11-17] MEDS: NORCO-5 PO PRN ×3 (00:50→11:03)
[2018-11-17] MEDS: SYNTHROID PO SCH (06:21)
[2018-11-17] MEDS: PROTONIX PO SCH (06:21)
[2018-11-17 07:24] VITALS: BP 152/87
[2018-11-17 07:39] LABS: AGAP 13; BUN 11 mg/dL (8-22); CALCIUM 8.8 mg/dL (8.8-10.2); CHLORIDE 100 mmol/L (98-107); COSMO 271; CREATININE 0.7 mg/dL (0.7-1.2); ESTIMATED GFR > 60; GLUCOSE 121 mg/dL (70-104); SODIUM 135 mmol/L (136-145); TCO2 22 mmol/L (25-35)
[2018-11-17] MEDS: XOPENEX NEB INH SCH (08:19)
[2018-11-17] MEDS: ATROVENT NEB INH SCH (08:19)
[2018-11-17] MEDS: COREG PO SCH (08:51)
[2018-11-17] MEDS: NORVASC PO SCH (08:51)
[2018-11-17] MEDS: ICAR-C PO SCH (08:51)
[2018-11-17] MEDS: APRESOLINE PO SCH (08:51)
[2018-11-17] MEDS: FLOMAX PO SCH (08:51)
[2018-11-17] MEDS: FOLIC ACID PO SCH (08:51)
[2018-11-17] MEDS: ANUSOL-HC SUPP PR SCH (08:51)
--- NOTE | 2018-11-17 11:19 | Carotid Study ---
DATE: 11/15/2018 REQUESTING PHYSICIAN: Dr. Lindy Marcus. SUPERVISING DEPUTY: Emily. INDICATIONS: 1. CVA. 2. Brain bleed. EQUIPMENT: [employer] Vivid E9 ultrasound system with a 9 L-D transducer. FINDINGS: Complete diagram of ultrasound image can be seen scanned in the patient's medical record. The peak systolic velocity on the right side in the internal system is in the distal internal carotid artery and is 73. The peak systolic velocity on the left internal system is in the proximal internal and is noted to be 73. The calculated internal carotid ratio on the right is 0.52, and the left is 0.62. Calculated stenosis on the right is 0% to 39%, left is 0% to 39%. There appears to be some atherosclerosis, but at this time does not produce a hemodynamically significant flow-limiting stenosis. Both vertebral arteries were antegrade flow. INTERPRETATION: By strict velocity criteria, no hemodynamically significant flow-limiting stenosis. cc: MD Lindy Murphy MD
--- NOTE | 2018-11-17 14:07 | NEPHROLOGY CONSULTATION ---
DATE: 11/16/2018 REASON FOR ADMISSION: Two-day history of blurred vision and dizziness. REASON FOR CONSULTATION: Hyponatremia CONSULTING PHYSICIAN: Dr. iLndy Marcus. HISTORY OF PRESENT ILLNESS: Mr. White is a 60-year-old male with a past medical history of post traumatic intracranial bleed less than a month ago with a history of COPD, hypertension and BPH. The patient states that he has been told that his sodium has been low approximately 1 year ago. He also indicated that he had recently been started on Paxil in January of 2018. He admits to having increased work of breathing with a nonproductive cough, congestion or wheezing for 2 days prior to his admission. States that he had some fever and chills. Followed up with Dr. Sabillon. His daughter went to that office visit with him and noticed that he was ataxic with his gait. Admitted to having blurred vision with new onset of headache. No speech disturbance was present. No facial asymmetry. He was brought to [facility] for workup. On his initial labs, he was found to have a sodium of 123. CT of the head was essentially negative for acute disease. No polyuria, polydipsia, though patient states that he is chronically thirsty and will drink over 2 gallons of liquid in a day; even gets up at night and will drink milk out of a jug. The patient denies any nausea, vomiting, no diarrhea. No chest pain. No increased swelling. PAST MEDICAL HISTORY: Positive for post traumatic intracranial bleed less than a month ago followed at [facility]. He has been on a daily aspirin regimen, COPD, hypertension, BPH, anxiety. The patient has hypothyroidism. SURGICAL HISTORY: Tonsillectomy and appendectomy. SOCIAL HISTORY: He is . He lives in [place]. He has recently retired within the last month prior to his intracranial bleed. Drinks 1 to 2 glasses of wine daily. Admits to drinking greater than 2 gallons a day. No history of smoking. FAMILY HISTORY: Father with coronary artery disease. Mother with leukemia. Positive history of diabetes with first degree relatives. ALLERGIES: Listed as penicillin and albuterol. HOME MEDICATIONS: Hydralazine, Coreg, losartan, Flomax, Norvasc, Synthroid, testosterone shots, Paxil and Protonix. REVIEW OF SYSTEMS: Review of systems x10 with pertinent positives listed above in the HPI. LABS AND X-RAYS: The patient's CT of the head showed possible subacute infarct on the right temporoparietal cortex. Chest film was no acute disease. EKG showed sinus rhythm, possible atrial enlargement. His white count was 15,000, hemoglobin of 10. Urinalysis was negative. Sodium was 123 on admission, now up to 132. PHYSICAL EXAMINATION: Vital Signs: This a.m., temperature is 97.9 degrees, blood pressure 160/81, heart rate 77, respirations 18. He is on room air. Last recorded saturation 100%. He has had 390 in; he has had 0 recorded out. General: This is a 68-year-old white male resting quietly in bed. He is in no acute distress. Skin: Warm and dry. HEENT: Normocephalic, atraumatic. Conjunctiva is pale pink. He has DOMINIC. Mucous membranes are dry. Neck: Supple. Trachea midline. No evidence of JVD. Cardiovascular: Regular rate and rhythm. No murmur or gallop are appreciated. Lungs: Clear to auscultation bilaterally. Equal excursion on room air. Abdomen: Soft, nontender. Positive bowel sounds. Genitourinary: Not inspected. Patient states he has been voiding. Urinal is next to the bed, but he has also been getting up. Neurological: No tremors are noted. Moves all 4 extremities well. 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 Pupils are equal. Alert and oriented x3. REPEAT LABS: This a.m. sodium 135, potassium 4, chloride 100, CO2 22. BUN 11, creatinine 0.7, glucose 121. His anion gap is 13, his calcium is 8.8. Previous hemoglobin of 9.9. 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 His Paxil has been stopped during his hospital stay which is appropriate. ASSESSMENT AND PLAN: 1. Hyponatremia. All indications for syndrome of inappropriate antidiuretic hormone complicated with Paxil and a history of drinking greater than 2 to 3 gallons of liquid in 24 hours. We have discussed this with the patient. His sodium has improved during his hospital stay off the Paxil. We will repeat his urine sodium and urine osmolality today. We have encouraged patient to stick to a 2 liter fluid restriction during his hospital stay and discharged home. His and his daughter are at the bedside and have agreed to assist the patient with this fluid restriction. The patient had a thyroid stimulating hormone repeated during his hospital stay indicating it was 8.09, now on levothyroxine. 2. Ataxia with altered gait and mental status. Dr. Long is currently following. Patient is a status post 1 month post intracranial bleed. 3. Acid-base balance and anemia. These are stable. I would like to thank you for allowing us to follow with this patient. Dictated by VANNESA Delong for Benton Gordillo MD [id number] encounter, data reviewed, discussed with Jacqueline De La Rosa on 11/17/18. I agree with the above assessment and plan of care. cc: VANNESA Delong MD [facility]
--- NOTE | 2018-11-18 06:29 | DISCHARGE SUMMARY ---
ADMISSION DATE: 11/14/2018 DISCHARGE DATE: 11/17/2018 PRIMARY CARE PHYSICIAN: Dr. Osvaldo Sabillon FINAL DISCHARGE DIAGNOSES: 1. Transient ischemic attack. 2. Hyponatremia. 3. Metabolic encephalopathy. 4. Hypertension. 5. Chronic obstructive pulmonary disease. 6. Hypothyroidism. 7. Status post traumatic intracranial hemorrhage. 8. Iron deficiency anemia. 9. History of alcohol abuse. CONSULTATIONS: 1. Neurology consultation with Dr. Lieberman. 2. Nephrology consultation with Dr. Gordillo. IMAGIN. Portable chest x-ray performed on 11/14/2018 that revealed no acute disease. 2. Head CT performed on 11/14/2018 that revealed a possible subacute infarction of the right temporal parietal cortex. 3. Brain MRI performed on 11/14/2018 that revealed a 2.4 x 1 cm late acute to subacute infarct at the right temporoparietal junction. 4. Chest CT which revealed anemia. No evidence of acute pulmonary disease. 5. Echocardiogram performed on 11/14/2018 that revealed normal LV function, normal diastolic function. No pericardial effusion. HOSPITAL COURSE: Mr. White is a 68-year-old male with a history of a traumatic intracranial hemorrhage last month, as well as hypertension, COPD, hypothyroidism, and an iron deficiency anemia who was brought to the ER with a chief complaint of double vision and gait instability. On admission, a head CT was done that revealed a possible subacute infarction involving the right temporal parietal cortex. The patient was admitted to the hospitalist service and Neurology was consulted. Of note, on admission the patient was noted to have a sodium of 123. The patient was started on IV fluids and his sodium level was monitored closely. A brain MRI was done the following day that revealed an acute to subacute infarct involving the right temporal parietal junction. It was thought that this could represent the area that the patient had a recent hemorrhage last month. Neurologically, the patient was noted to be back to baseline within 12 hours. He had no new neurologic deficits on examination. The patient's sodium improved initially with IV fluids. He was then switched to a 1.8 fluid restriction, and his sodium continued to improve. He was seen by the piano regulator. The patient was seen by physical therapy, and he did well and was able to ambulate without any difficulty. He was also seen by the neurologist who recommended that the patient stop using alcohol, and to keep his blood pressure under control. The patient continued to improve clinically, and was ultimately cleared for discharge home on 11/17/2018. DISCHARGE MEDICATIONS: 1. Lipitor 20 mg p.o. at bedtime. 2. Anusol 25 mg per rectum twice a day. 3. Hydralazine 50 mg oral twice a day. 4. Icar C 1 tablet oral twice a day. 5. Xopenex 1.25 mg inhaled every 8 hours. 6. Atrovent inhaler 2 puffs inhaled 4 times a day p.r.n. for shortness of breath. 7. Cozaar 50 mg oral every morning. 8. Flomax 0.4 mg oral daily. 9. Synthroid 75 mcg oral every morning. 10. Folic Acid 1 mg oral daily. 11. Protonix 40 mg p.o. daily. 12. Norvasc 10 mg p.o. daily. 13. Coreg 6.25 mg oral twice a day. 14. Reardan 5/325 one tab oral every 6 hours p.r.n. for pain. DISCHARGE DIET: Low-sodium and low-cholesterol diet. 1.8 fluid restriction. ACTIVITY: As tolerated. FOLLOWUP INSTRUCTIONS: The patient is scheduled to follow up with Dr. Osvaldo Sabillon on 11/18/2018 at 10:30 in the morning. The patient will also need to follow up with Dr. Escudero on 11/24/2018 at 9:00 in the morning. cc: MD Osvaldo Egan MD
== END 2018-11-17 11:41 | disposition home or self-care (01) | DRG 69 ==
LOC: ED 12:29 → 2N 20:49 → SUATTDRO 20:49 → 3N 11-15 18:42
PROVIDERS: ATTEND Internal Medicine